=== PATIENT | male | born 1940 | race Caucasian/White ===

== ENCOUNTER → 2017-08-11 14:08 | Outpatient (CLI) | payer SELFPAY ==
--- NOTE | 2017-08-11 14:23 | CT_ITS ---
STUDY: CT ABDOMEN AND PELVIS WITHOUT CONTRAST REASON FOR EXAM: Male, 76 years old. Benign prostatic hypertrophy and urinary obstruction. RADIATION DOSAGE (If Supplied By Facility): CTDIvol = ( 6.13 ) mGy, DLP = ( 261.64 ) mGycm TECHNIQUE: Transaxial images were obtained from the dome of the diaphragm to the symphysis pubis without oral contrast, and without intravenous contrast. Sagittal and coronal images were reconstructed. Individualized dose optimization techniques were used for this CT. COMPARISON: None. FINDINGS: Minimal increased linear markings at the lung bases suggestive of scarring. The visualized portions of the heart are within normal limits. Normal liver. The gallbladder is contracted. Tiny gallstones. Normal spleen. Normal pancreas. Normal bilateral adrenal glands. There is moderate cortical atrophy of the right kidney, consistent with chronic medical renal disease. Several small cysts are seen in the right kidney. There is a 3.4 cm by 3.4 cm x 4.7 cm solid mass in the superior lateral aspect of the left kidney. A neoplastic process should be ruled out. Mild atrophy of the left kidney. Normal visualized stomach. Normal small intestine. Moderate amount of fecal material is seen in the colon. The appendix is visualized and appears normal. There is diffuse atherosclerotic calcification of the abdominal aorta, without a demonstrated aneurysm. Normal inferior vena cava. Normal retroperitoneum. Diffusely thickened bladder wall. Marked enlargement of the prostate. This measures 7.4 cm x 7 cm. This causes protrusion into the base of the bladder. Normal abdominal wall. There are diffuse degenerative changes of the visualized lumbar spine. Grade 2 anterior listhesis of L5 on S1. Facet joint osteoarthritis. CT/Abdomen/Pelvis without Cont IMPRESSION: Marked enlargement of the prostate with indentation at the bladder base. Diffuse thickening of the bladder. Atrophy of the right kidney. 3.4 cm x 3.4 sign by 4.7 cm solid mass in the left kidney. A neoplastic process should be ruled out. Electronically Signed: Jamal Finch MD at 15:24 EDT Tel [phone], Service support ,
== END ==
PROVIDERS: Visit Provider Urology
DX: N40.1 Benign prostatic hyperplasia with lower urinary tract symptoms (principal)
CPT/HCPCS: 74176

== ENCOUNTER → 2017-10-03 08:52 | Outpatient (CLI) | payer OTHER, SELFPAY ==
[2017-09-02 14:19] VITALS: BP 158/86; PULSE 74; RESP 16; TEMP 36.3; O2SAT 98; BMI 21.4
--- NOTE | 2017-09-02 14:27 | SDCEKG_ITS ---
Test Reason : Blood Pressure : / mmHG Vent. Rate : 073 BPM Atrial Rate : 073 BPM P-R Int : 176 ms QRS Dur : 088 ms QT Int : 418 ms P-R-T Axes : 042 042 091 degrees QTc Int : 460 ms Normal sinus rhythm Voltage criteria for left ventricular hypertrophy Prolonged QT Abnormal ECG Confirmed by MANUEL OLIVEIRA, KAINKA ([id number]), scientific publications editor AMISH FINN ([id number]) on 09/07/2017 3:20:43 PM Referred By: Michael Husain Confirmed By:KANIKA JACKSON MD
--- NOTE | 2017-09-02 15:00 | RAD_ITS ---
STUDY: X-RAY CHEST REASON FOR EXAM: Male, 76 years old. Cough. Preop TECHNIQUE: Frontal and lateral views of the chest. COMPARISON: None. FINDINGS: There is hyperinflation of the lungs consistent with chronic obstructive lung disease (COPD). No infiltrates or effusions. Blunting of the left costophrenic angle is most consistent with scarring. There is no demonstrated pleural abnormality. Normal size heart. Normal mediastinum and lakshmi. Normal visualized pulmonary arteries. There is atherosclerotic tortuosity of the aortic arch and descending thoracic aorta. There are diffuse degenerative changes of the visualized thoracic spine. Normal visualized ribs, clavicles, and shoulders. There is no demonstrated abnormality of the visualized soft tissue structures of the upper abdomen. RAD/Chest PA and Lateral IMPRESSION: There are findings consistent with COPD. There is no evidence of acute chest disease. Electronically Signed: Kevin Valverde MD at 15:19 EDT , Service support ,
[2017-09-02 15:10] LABS: Hematocrit 36.9 % (40-54); Hemoglobin 11.2 g/dl (13.0-16.5); Mean Corp Hgb Conc 30.4 g/gl (32-36); Mean Corpuscular Hgb 28.1 pg (27.0-32.0); Mean Corpuscular Volume 92.7 fL (80-94); Mean Platelet Vol. 9.6 fl (6.2-12.0); Platelet Count 208 K/mm3 (150-450); RBC Distribution Width CV 17.2 % (11.6-14.6); RBC Distribution Width SD 58.1 fl (35.1-43.9); Red Blood Count 3.98 M/mm3 (4.6-6.2); White Blood Count 6.1 K/mm3 (4.4-11.0)
[2017-09-02 15:12] LABS: Scan Indicated on CBC? Y/N NO
[2017-09-02 15:15] LABS: Color, Urine Yellow (Yellow); Glucose, Dipstick 100 mg/dl (Normal); Ketone-Dipstick Negative (Negative); Leukocyte Esterase-Dipstick 25 /ul (Negative); Nitrite-Dipstick Negative (Negative); Occult Blood-Urine 25 /ul (Negative); Protein-Dipstick 100 mg/dl (Negative); Urine Bilirubin Dipstick Negative (Negative); Urine Clarity Clear (Clear); Urine Urobilinogen Normal (Normal)
[2017-09-02 15:39] LABS: Anion Gap 10 (5-15); BUN 75 mg/dL (7-18); BUN/Creat Ratio 10.5 RATIO (10-20); Calcium,Total 9.2 mg/dL (8.5-10.1); Chloride 100 mmol/L (98-107); Creatinine, Serum 7.16 mg/dL (0.70-1.30); EST Glomerular Filtration Rate 8 mL/min (>60); Est Glom Filt Rate - Afr Amer 10 mL/min (>60); Estimated Creatinine Clearance 8.31 ml/min; Glucose 84 mg/dL (74-106); Potassium 6.4 mmol/L (3.5-5.1); Sodium Level 137 mmol/L (136-145)
== END ==
PROVIDERS: Visit Provider Urology
DX: Z01.818 Encounter for other preprocedural examination (principal); R05 Cough
CPT/HCPCS: 71046; 80048; 81002; 85027; 86850; 86900; 87077; 87086; 87088; 87186; 93005